=== PATIENT | male | born 1955 | race Caucasian/White ===

== ENCOUNTER 2024-04-19 17:14 | Inpatient (IN) | payer OTHER ==
--- OUTSIDE RECORDS SUMMARY | 2024-04-19 17:16 | XMS REPORT | Continuity of Care Document ---
Author Name Unknown Address [address] [facility] [id number] [id number] [facility] thconnect Address [address] [facility] [address] [phone] Care Team Providers Care Newspaper Delivery Driver Name Role Phone PAM MATHEW Primary Care Physician EVELINE Wells Attending Clinician Unava ilable Payers Payer Name Policy Type Policy Number Effective Date Expirati on Date Source MEDICARE PART A \T\ [id number] 2022 00:00:00 Allergies, Adverse Reactions, Alerts Allergy Name Allergy Type Status Severity Reaction(s) Onset Date Inactive Date Treating Clinician Comments Source NO KNOWN ALLERGIE S Drug Class Active [facility] Encounters Start Date/Time End Date/Time Encounter Type Admission Type Attending Clinicians Care Facility Care Department Encounter ID Source 2022-05-06 10:00:00 2022-05-06 10:00:00 Outpatient EVELINE LAINEZ [facility] [id number] [facility]
--- NOTE | 2024-04-19 18:24 | RAD REPORT ---
Procedure: Chest Single View History: Abdominal pain Comparison: none The lungs appear clear of acute infiltrate. No significant pleural effusion noted. The heart is normal size.. The aorta is tortuous/ectatic IMPRESSION: No acute abnormality is displayed.
[2024-04-19] MEDS ORDERED: METOCLOPRAMIDE 10 MG/2mL INJ ONE (18:32)
[2024-04-19] MEDS ORDERED: MAGNES/ALUMIN/SIMET 30ML UCUP ONE (18:32)
[2024-04-19] MEDS ORDERED: NA CHLORIDE 0.9% 500 ML ONE (18:33)
[2024-04-19] MEDS ORDERED: FENTANYL CITR 100 MCG/2 ML ONE (18:33)
[2024-04-19] MEDS ORDERED: LIDOCAINE VISCOUS 2% 10ML ORAL SOLN ONE (18:33)
[2024-04-19] MEDS ORDERED: FAMOTIDINE 20 MG/2 ML VIAL IV ONE (18:33)
[2024-04-19 18:38] LABS: Absolute Eosinophils 0.1 K/uL (0-0.5); Absolute Lymphocytes (CBC) 1.2 K/uL (0.7-4.9); Absolute Monocytes 0.9 K/uL (0.1-1.3); Absolute Neutrophil 9.3 K/uL (1.8-8.0); Basophils % 0.1 % (0-1.3); Eosinophils % 0.8 % (0-4.4); Hematocrit 42.5 % (39.6-49.0); Hemoglobin 14.5 g/dL (13.6-17.9); Lymphocytes % 10.7 % (15.3-44.8); MCH 31.3 pg (27.0-35.0); MCHC 34.1 g/dL (32.0-36.0); MCV 91.6 fL (80-100); MPV 7.7 fL (7.6-11.3); Monocytes % 7.8 % (3.3-12.3); Neutrophils % 80.6 % (41.7-73.7); Platelets 199 thou/uL (152-406); RBC Red Blood Cell Count 4.64 M/uL (4.33-5.43); Red Cell Distribution Width 13.2 % (12.1-15.2)
[2024-04-19 18:53] LABS: PT Prothrombin Time 12.1 SECONDS (9.4-12.5); Protime INR 1.08
[2024-04-19 19:07] LABS: Albumin 3.6 g/dL (3.4-5.0); Albumin/Globulin Ratio 0.9 (1.1-1.8); Anion Gap 6.7 mEq/L (5.0-15.0); Bilirubin Indirect, Calculated 0.6 mg/dL (0.2-0.8); Bilirubin Total 1.6 mg/dL (0.2-1.0); Globulin 3.8 g/dL (2.3-3.5); Magnesium 2.5 mg/dL (1.6-2.4); Potassium 3.7 mEq/L (3.5-5.1); Protein, Total 7.4 g/dL (6.4-8.2)
--- NOTE | 2024-04-19 20:12 | RAD REPORT ---
EXAMINATION: CT ABDOMEN AND PELVIS WITH CONTRAST CLINICAL INDICATION: Male, 68 years old. ABD PAIN TECHNIQUE: CT abdomen and pelvis was performed, after the administration of 100 cc Isovue-300.. Sagit candace and coronal reconstructions were obtained. One or more of the following dose reduction techniques were used: Automated exposure control, adjustment of the mA and/or kV according to patien t size, and/or iterative reconstruction. Unless otherwise specified, incidental findings do not require dedicated imaging follow-up. [id number].. Oral contrast not given which limits evaluation of pradeep l COMPARISON: 2017 FINDINGS: Tiny hepatic cyst 4 mm calculus at the junction of the gallbladder neck and cystic duct. The spleen, pancreas, adrenals kidney unremarkable. Tiny calculus right kidney. No hydronephrosis No evidence of diverticulitis. : IMPRESSION: 4 mm calculus at the junction of the gallbladder neck and cystic duct.
--- NOTE | 2024-04-19 20:21 | ER ---
Nurse's Notes [facility] Name: Javed Enamorado Age: 68 yrs Sex: Male : 1955 Arrival Date: 04/19/2024 Time: 17:14 Bed 3 Private MD: Diagnosis: Calculus of gallbladder and bile duct without cholecystitis with obstruction;Epigastric abdominal tenderness Presentation: 04/19 17:15 Chief complaint: Patient states: abdominal pain described as pressure that began today aa5 after eating "a big meal". Also reports nausea and 1 vomiting episode. 17:15 Coronavirus screen: nausea, vomiting. Ebola Screen: Patient denies travel to an [facility] Ebola-affected area in the 21 days before illness onset. Initial Sepsis Screen: Does the patient meet any 2 criteria? No. Patient's initial sepsis screen is negative. Does the patient have a suspected source of infection? No. Patient's initial sepsis screen is negative. Risk Assessment: Do you want to hurt yourself or someone else? Patient reports no desire to harm self or others. Onset of symptoms was April 19, 2024. 17:15 Acuity: LILIAN 3 aa5 17:15 Method Of Arrival: Ambulatory aa5 Historical: - Allergies: 17:18 No Known Allergies; aa5 - PMHx: 17:18 Hypertensive disorder; Diabetes mellitus; ulcerative colitis; aa5 - PSHx: 17:18 None; aa5 - Immunization history:: Adult Immunizations unknown. - Infectious Disease History:: Denies. - Social history:: Smoking status: Patient denies any tobacco usage or history of. Screenin:15 [facility] ED Fall Risk Assessment (Adult) History of falling in the last 3 months, aa5 including since admission No falls in past 3 months (0 pts) Confusion or Disorientation No (0 pts) Intoxicated or Sedated No (0 pts) Impaired Gait No (0 pts) Mobility Assist Device Used No (0 pt) Altered Elimination No (0 pt) Score/Fall Risk Level 0 - 2 = Low Risk Oriented to surroundings, Maintained a safe environment, Educated pt \\T\\ family on fall prevention, incl call for assistance when getting out of bed. Abuse screen: Denies threats or abuse. Nutritional screening: No deficits noted. Tuberculosis screening: No symptoms or risk factors identified. Assessment: 17:15 General: Appears comfortable, Behavior is calm, cooperative. Pain: Complains of pain in aa5 right upper quadrant, left upper quadrant, right lower quadrant and left lower quadrant Pain does not radiate. Quality of pain is described as pressure, Pain began 2-3 hours ago Is continuous. Neuro: Level of Consciousness is awake, alert, obeys commands, Oriented to person, place, time, situation. Cardiovascular: Patient's skin is warm and dry. Respiratory: Airway is patent Respiratory effort is even, unlabored, Respiratory pattern is regular, symmetrical. GI: Abdomen is round Bowel sounds present X 4 quads. Abd is soft and non tender X 4 quads. Reports nausea, vomiting. : No signs and/or symptoms were reported regarding the genitourinary system. EENT: No signs and/or symptoms were reported regarding the EENT system. Derm: Skin is pink, warm \\T\\ dry. Musculoskeletal: Range of motion: intact in all extremities. 18:35 Reassessment: Patient is alert, oriented x 3, equal unlabored respirations, skin aa5 warm/dry/pink. 18:49 Reassessment: Patient is alert, oriented x 3, equal unlabored respirations, skin aa5 warm/dry/pink. Patient states feeling better. 20:40 Reassessment: Patient is alert, oriented x 3, equal unlabored respirations, skin jj7 warm/dry/pink. General: Appears in no apparent distress. comfortable, Behavior is calm, cooperative, appropriate for age. Pain: Denies pain. Neuro: No deficits noted. GI: No deficits noted. Patient currently denies. 22:41 Reassessment: PT REFUSED TO PUT ON A GOWN. jj7 Vital Signs: 17:15 BP 154 / 73; Pulse 65; Resp 18 S; Temp 97.5(TE); Pulse Ox 97% on R/A; Weight 95.25 kg aa5 (R); Height 5 ft. 10 in. (R); 20:40 BP 121 / 66; Pulse 92; Resp 59; Pulse Ox 97% ; Pain 0/10; jj7 21:33 BP 133 / 67; Pulse 66; Resp 18; Pulse Ox 98% ; br2 22:39 BP 149 / 87; Pulse 51; Resp 17; Pulse Ox 96% ; Pain 0/10; jj7 23:25 BP 142 / 84; Pulse 69; Resp 18; Temp 98.1; Pulse Ox 98% ; Pain 0/10; jj7 17:15 Body Mass Index 30.13 (95.25 kg, 177.8 cm) aa5 20:40 Pain Scale: Adult jj7 22:39 Pain Scale: Adult jj7 23:25 Pain Scale: Adult jj7 ED Course: 17:15 Patient arrived in ED. aa5 17:15 Arm band placed on. aa5 17:15 Patient has correct armband on for positive identification. Pt sitting on recliner, aa5 internal waiting area. 17:17 Jose F Schwartz MD is Attending Physician. [facility] 17:18 Triage completed. aa5 17:50 US Abdomen Limited In Process Unspecified. EDMS 17:52 XRAY Chest (1 view) In Process Unspecified. EDMS 18:13 Radiology exam delayed due to lab results not completed at this time. (BUN/Creatinine). nj 18:20 EKG done, by ED staff, reviewed by Jose F Schwartz MD. aa5 18:25 Initial lab(s) drawn, by co, sent to lab. Inserted saline lock: 20 gauge in left aa5 antecubital area, using aseptic technique. Blood collected. Flushed with 10 mL NS. 18:41 Letitia West, RN is Primary Nurse. aa5 19:00 Report given to KIRT Garcia. aa5 19:37 CT Abd/Pelvis - IV Contrast Only In Process Unspecified. EDMS 19:37 No provider procedures requiring assistance completed. aa5 20:19 Arnoldo Jon MD is Hospitalizing Provider. [facility] 21:26 Primary Nurse role handed off by Letitia West, RN rv1 23:25 Patient admitted, IV remains in place. jj7 Administered Medications: 18:35 Drug: Famotidine IVP 20 mg IVP once; dilute with 10 mL 0.9% NaCl; give over 2 minutes aa5 Route: IVP; Site: left antecubital; 18:50 Follow up: Response: No adverse reaction aa5 18:35 Drug: metoCLOPramide IVP 10 mg IVP once; over 1 to 2 minutes Route: IVP; Site: left aa5 antecubital; 18:50 Follow up: Response: No adverse reaction aa5 18:35 Drug: GI Cocktail with - (Maalox PO 30 ml, Lidocaine Mucous Membrane 2 % 20 aa5 ml, Phenobarbital-Belladonna PO 10 ml) PO once Route: PO; 18:50 Follow up: Response: No adverse reaction aa5 18:37 Drug: fentaNYL (PF) IVP 25 mcg IVP once Route: IVP; Site: left antecubital; aa5 18:50 Follow up: Response: No adverse reaction aa5 18:37 Drug: fentaNYL (PF) IVP 25 mcg IVP once Route: IVP; Site: left antecubital; aa5 18:50 Follow up: Response: No adverse reaction aa5 18:43 Drug: NS 0.9% IV 500 ml IV at bolus once Route: IV; Rate: bolus; Site: left antecubital;aa5 22:38 Follow up: IV Status: Completed infusion jj7 21:29 Drug: Piperacillin-Tazobactam IVPB 3.375 grams IVPB once over 60 mins; (mix in NS 100 br2 mL) Route: IVPB; Infused Over: 60 mins; Site: left antecubital; 22:00 Follow up: IV Status: Completed infusion br2 22:38 Drug: NS 0.9% IV 1000 ml IV at 125 ml/hr continuous Route: IV; Rate: 125 ml/hr; Site: jj7 left antecubital; 23:33 Follow up: IV Status: Infusion continued upon admission jj7 Medication: 18:50 VIS not applicable for this client. aa5 Outcome: 20:20 Decision to Hospitalize by Provider. beto 23:24 Patient left the ED. iw 23:25 Admitted to Med/surg accompanied by nurse, room 415, Report called to SBAR FAXED jj7 23:25 Condition: improved Signatures: Dispatcher [employer] EDMS Jose F Schwartz MD MD cha Williams, Irene RN Letitia Olivera RN RN aa5 Jake Henderson Juwairiyah RN RN jj7 Lindsay Brandt rv1 Sayra Ro RN RN br2 Corrections: (The following items were deleted from the chart) 17:20 17:15 Chief complaint: Patient states: abdominal pain described as pressure that began aa5 today after eating. Also reports nausea and 1 vomiting episode. aa5 22:40 20:40 BP 121 / ???; Pulse 92bpm; Resp 59bpm; Pulse Ox 97%; Pain 0/10, Adult; jj7 jj7
--- NOTE | 2024-04-19 20:21 | EDPHYS ---
Physician Documentation [facility] Name: Javed Enamorado Age: 68 yrs Sex: Male : 1955 Arrival Date: 04/19/2024 Time: 17:14 Bed 3 Private MD: ED Physician Jose F Schwartz HPI: 04/19 17:33 This 68 yrs old Male presents to ER via Ambulatory with complaints of beto Abdominal Pain. 17:33 The patient presents with abdominal pain abdominal distention in the upper abdomen, in beto the lower abdomen. Onset: The symptoms/episode began/occurred just prior to arrival. The symptoms do not radiate. Historical: - Allergies: 17:18 No Known Allergies; aa5 - PMHx: 17:18 Hypertensive disorder; Diabetes mellitus; ulcerative colitis; aa5 - PSHx: 17:18 None; aa5 - Immunization history:: Adult Immunizations unknown. - Infectious Disease History:: Denies. - Social history:: Smoking status: Patient denies any tobacco usage or history of. ROS: 19:53 Constitutional: Negative for fever, chills, and weight loss, Eyes: Negative for injury, beto pain, redness, and discharge, ENT: Negative for injury, pain, and discharge, Neck: Negative for injury, pain, and swelling, Cardiovascular: Negative for chest pain, palpitations, and edema, Respiratory: Negative for shortness of breath, cough, wheezing, and pleuritic chest pain, Back: Negative for injury and pain, : Negative for injury, bleeding, discharge, and swelling, MS/Extremity: Negative for injury and deformity, Skin: Negative for injury, rash, and discoloration, Neuro: Negative for headache, weakness, numbness, tingling, and seizure, Psych: Negative for depression, anxiety, suicide ideation, homicidal ideation, and hallucinations, Allergy/Immunology: Negative for hives, rash, and allergies, Endocrine: Negative for neck swelling, polydipsia, polyuria, polyphagia, and marked weight changes, Hematologic/Lymphatic: Negative for swollen nodes, abnormal bleeding, and unusual bruising, 19:53 Abdomen/GI: Positive for abdominal pain, nausea, Exam: 19:53 Constitutional: This is a well developed, well nourished patient who is awake, alert, beto and in no acute distress. Head/Face: Normocephalic, atraumatic. Eyes: Pupils equal round and reactive to light, extra-ocular motions intact. Lids and lashes normal. Conjunctiva and sclera are non-icteric and not injected. Cornea within normal limits. Periorbital areas with no swelling, redness, or edema. ENT: Nares patent. No nasal discharge, no septal abnormalities noted. Tympanic membranes are normal and external auditory canals are clear. Oropharynx with no redness, swelling, or masses, exudates, or evidence of obstruction, uvula midline. Mucous membranes moist. Neck: Trachea midline, no thyromegaly or masses palpated, and no cervical lymphadenopathy. Supple, full range of motion without nuchal rigidity, or vertebral point tenderness. No Meningismus. Chest/axilla: Normal chest wall appearance and motion. Nontender with no deformity. No lesions are appreciated. Cardiovascular: Regular rate and rhythm with a normal S1 and S2. No gallops, murmurs, or rubs. Normal PMI, no JVD. No pulse deficits. Respiratory: Lungs have equal breath sounds bilaterally, clear to auscultation and percussion. No rales, rhonchi or wheezes noted. No increased work of breathing, no retractions or nasal flaring. Back: No spinal tenderness. No costovertebral tenderness. Full range of motion. Male : Normal genitalia with no discharge or lesions. Skin: Warm, dry with normal turgor. Normal color with no rashes, no lesions, and no evidence of cellulitis. MS/ Extremity: Pulses equal, no cyanosis. Neurovascular intact. Full, normal range of motion. Neuro: Awake and alert, GCS 15, oriented to person, place, time, and situation. Cranial nerves II-XII grossly intact. Motor strength 5/5 in all extremities. Sensory grossly intact. Cerebellar exam normal. Normal gait. Psych: Awake, alert, with orientation to person, place and time. Behavior, mood, and affect are within normal limits. 19:53 ECG was reviewed by the Attending Physician. 19:53 Abdomen/GI: Inspection: distension, Bowel sounds: active, all quadrants, Palpation: mild abdominal tenderness, moderate abdominal tenderness, in the epigastric area, right upper quadrant and left upper quadrant, Liver: no appreciated palpable abnormalities, Hernia: not appreciated, Vital Signs: 17:15 BP 154 / 73; Pulse 65; Resp 18 S; Temp 97.5(TE); Pulse Ox 97% on R/A; Weight 95.25 kg aa5 (R); Height 5 ft. 10 in. (R); 20:40 BP 121 / 66; Pulse 92; Resp 59; Pulse Ox 97% ; Pain 0/10; jj7 21:33 BP 133 / 67; Pulse 66; Resp 18; Pulse Ox 98% ; br2 22:39 BP 149 / 87; Pulse 51; Resp 17; Pulse Ox 96% ; Pain 0/10; jj7 23:25 BP 142 / 84; Pulse 69; Resp 18; Temp 98.1; Pulse Ox 98% ; Pain 0/10; jj7 17:15 Body Mass Index 30.13 (95.25 kg, 177.8 cm) aa5 20:40 Pain Scale: Adult jj7 22:39 Pain Scale: Adult jj7 23:25 Pain Scale: Adult jj7 MDM: 17:17 Patient medically screened. [facility] 19:55 Differential diagnosis: acute coronary syndrome, cholecystitis, Cholelithiasis, beto gastritis, gastroesophageal reflux disease, Mesenteric ischemia or infarction, non-specific abd pain, pancreatitis, Peptic Ulcer Disease, Ureterolithiasis, urinary tract infection. Data reviewed: vital signs, nurses notes, lab test result(s), EKG, radiologic studies, CT scan, plain films, ultrasound. Consideration of Admission/Observation Escalation of care including admission/observation considered. I considered the following discharge prescriptions or medication management in the emergency department Medications were administered in the Emergency Department. See MAR. Independent interpretation of the following test(s) in the Emergency Department EKG: See my EKG interpretation above. Test considered but Not performed: MRI: no mrcp, no gi . Historians other than the Patient: Spouse/Significant Other: well informed. Care significantly affected by the following chronic conditions: Diabetes, Hypertension, Obesity. 04/19 17:22 Order name: Basic Metabolic Panel; Complete Time: 19:16 [facility] 04/19 17:22 Order name: CBC with Diff; Complete Time: 18:59 [facility] 04/19 17:22 Order name: LFT's; Complete Time: 19:16 [facility] 04/19 17:22 Order name: Magnesium; Complete Time: 19:16 [facility] 04/19 17:22 Order name: NT PRO-BNP; Complete Time: 19:16 [facility] 04/19 17:22 Order name: PT-INR; Complete Time: 18:59 [facility] 04/19 17:22 Order name: Troponin HS; Complete Time: 19:16 [facility] 04/19 17:22 Order name: Lipase; Complete Time: 19:16 [facility] 04/19 21:31 Order name: Urinalysis w/ reflexes [facility] 04/19 21:31 Order name: CBC with Automated Diff [facility] 04/19 21:31 Order name: CBC with Automated Diff [facility] 04/19 21:31 Order name: Comprehensive Metabolic Panel [facility] 04/19 21:31 Order name: Comprehensive Metabolic Panel [facility] 04/19 17:22 Order name: XRAY Chest (1 view); Complete Time: 18:59 [facility] 04/19 17:22 Order name: US Abdomen Limited [facility] 04/19 17:22 Order name: CT Abd/Pelvis - IV Contrast Only; Complete Time: 20:13 [facility] 04/19 21:31 Order name: CONS Physician Consult [facility] 04/19 17:22 Order name: Cardiac monitoring; Complete Time: 22:24 [facility] 04/19 17:22 Order name: EKG - Nurse/Tech; Complete Time: 18:43 [facility] 04/19 17:22 Order name: IV Saline Lock; Complete Time: 18:43 [facility] 04/19 17:22 Order name: Labs collected and sent; Complete Time: 18:43 [facility] 04/19 17:22 Order name: O2 Per Protocol; Complete Time: 18:43 [facility] 04/19 17:22 Order name: O2 Sat Monitoring; Complete Time: 18:43 [facility] 04/19 19:23 Order name: NPO; Complete Time: 20:45 [facility] EC:53 Rate is 66 beats/min. QRS [place] is Normal. IN interval is normal. QRS interval is beto normal. QT interval is normal. No Q waves. T waves are Normal. No ST changes noted. Clinical impression: Normal ECG and No evidence of ischemia. Interpreted by me. Reviewed by me. Administered Medications: 18:35 Drug: Famotidine IVP 20 mg IVP once; dilute with 10 mL 0.9% NaCl; give over 2 minutes aa5 Route: IVP; Site: left antecubital; 18:50 Follow up: Response: No adverse reaction aa5 18:35 Drug: metoCLOPramide IVP 10 mg IVP once; over 1 to 2 minutes Route: IVP; Site: left aa5 antecubital; 18:50 Follow up: Response: No adverse reaction aa5 18:35 Drug: GI Cocktail with - (Maalox PO 30 ml, Lidocaine Mucous Membrane 2 % 20 aa5 ml, Phenobarbital-Belladonna PO 10 ml) PO once Route: PO; 18:50 Follow up: Response: No adverse reaction aa5 18:37 Drug: fentaNYL (PF) IVP 25 mcg IVP once Route: IVP; Site: left antecubital; aa5 18:50 Follow up: Response: No adverse reaction aa5 18:37 Drug: fentaNYL (PF) IVP 25 mcg IVP once Route: IVP; Site: left antecubital; aa5 18:50 Follow up: Response: No adverse reaction aa5 18:43 Drug: NS 0.9% IV 500 ml IV at bolus once Route: IV; Rate: bolus; Site: left antecubital;aa5 22:38 Follow up: IV Status: Completed infusion jj7 21:29 Drug: Piperacillin-Tazobactam IVPB 3.375 grams IVPB once over 60 mins; (mix in NS 100 br2 mL) Route: IVPB; Infused Over: 60 mins; Site: left antecubital; 22:00 Follow up: IV Status: Completed infusion br2 22:38 Drug: NS 0.9% IV 1000 ml IV at 125 ml/hr continuous Route: IV; Rate: 125 ml/hr; Site: [facility] left antecubital; 23:33 Follow up: IV Status: Infusion continued upon admission jj7 Disposition Summary: 04/19/24 20:20 Hospitalization Ordered Notes: Hospitalization Status: Inpatient Admission beto Provider: Arnoldo Jon cha Location: Telemetry/MedSur (Inpatient) beto Condition: Stable beto Problem: new beto Symptoms: have improved beto Bed/Room Type: Standard bteo Room Assignment: 415(04/19/24 22:06) rv1 Diagnosis - Calculus of gallbladder and bile duct without cholecystitis with obstruction beto - Epigastric abdominal tenderness beto Forms: - Medication Reconciliation Form beto - SBAR form beto - Leadership Thank You Letter beto Signatures: Dispatcher [employer] Jose F Schroeder MD MD cha Calderon, Audri RN RN aa5 Caryn Vallecillo RN RN jj7 Lindsay Brandt rv1 Sayra Ro RN RN br2 Corrections: (The following items were deleted from the chart) 17:23 17:23 BASIC METABOLIC PANEL+C.LAB.BRZ ordered. EDMS EDMS 17:23 17:23 CBC+H.LAB.BRZ ordered. EDMS EDMS 17:23 17:23 HEPATIC FUNCTION+C.LAB.BRZ ordered. EDMS EDMS 17: 17:23 MAGNESIUM+C.LAB.BRZ ordered. EDMS EDMS 17:23 17:23 PROBNP+C.LAB.BRZ ordered. EDMS EDMS 17:23 17:23 PROTIME (+INR)+COAG.LAB.BRZ ordered. EDMS EDMS 17: 17:23 Troponin High Sensitivity+C.LAB.BRZ ordered. EDMS EDMS 17:23 17:23 LIPASE+C.LAB.BRZ ordered. EDMS EDMS 17:23 17:23 Chest Single View+RAD.RAD.BRZ ordered. EDMS EDMS 17:23 17:23 Abdomen Limited+US.RAD.BRZ ordered. EDMS EDMS 17:23 17:23 Abdomen Pelvis W Con+CT.RAD.BRZ ordered. EDMS EDMS 22:06 20:20 beto rv1
--- NOTE | 2024-04-19 20:31 | RAD REPORT ---
Abdomen Exam Limited History: Abdominal pain Comparison: April 19, 2024 CT Technique: Sonographic evaluation right upper quadrant Findings: The patient's known 4 mm calculus seen on CT same date is not seen on this exam. Also not visualized. Gallbladder wall not thickened. Common bile duct 5 mm Impression: The patient's known 4 mm calculus at the junction of the gallbladder neck and cystic duct not seen on this exam No evidence of cholecystitis
[2024-04-19] MEDS ORDERED: ONDANSETRON 4 MG/2 ML VIAL IV PRN (21:18)
--- NOTE | 2024-04-19 21:18 | P.HP ---
Certification for Inpatient Patient admitted to: Inpatient With expected LOS: >2 Midnights Practitioner: I am a practitioner with admitting privileges, knowledge of patient current condition, hospital course, and medical plan of care. Services: Services provided to patient in accordance with Admission requirements found in Title 42 Section 412.3 of the Code of Federal Regulations Patient History Date of Service: 04/19/24 Reason for admission: Abdominal Pain History of Present Illness: 68 yrs old Male with past medical history of diabetes, hypertension, ulcerative colitis, brought to ER with abdominal pain. Started few days ago has been progressively getting worse. Pain is located in the right upper quadrant associated with some abdominal distention. No fever or chills. No nausea vomiting or diarrhea. Pain get worse after eating food. Denies any nausea vomiting or diarrhea. No chest pain or shortness of breath. Patient was assessed in the ER Patient had a CT and ultrasound which was consistent with gallstones with associated gallbladder wall thickness Allergies No Known Allergies Allergy (Unverified 04/19/24 21:58) Home medications list reviewed: Yes - Past Medical/Surgical History Past Medical History: Reviewed- Non-Contributory Past Surgical History: Reviewed- Non-Contributory - Family History Family History: Reviewed- Non-Contributory - Social History Smoking Status: Never smoker Review of Systems 10-point ROS is otherwise unremarkable Physical Examination - Vital Signs Temperature: 98.2 F Blood Pressure: 146/82 Pulse: 76 Respirations: 18 Pulse Ox (%): 94 - Physical Exam General: Alert, In no apparent distress, Oriented x3, Obese HEENT: Atraumatic, Normocephalic Neck: Supple Respiratory: Clear to auscultation bilaterally, Normal air movement Cardiovascular: Normal pulses, Regular rate/rhythm, Normal S1 S2 Capillary refill: <2 Seconds Gastrointestinal: Soft and benign, W/out hepatosplenomegaly, Tenderness Musculoskeletal: No clubbing, No swelling Integumentary: No rashes, No breakdown Neurological: Normal speech, Normal strength at 5/5 x4 extr, Cranial nerves 3-12 intact, Normal reflexes 2+ Lymphatics: No axilla or inguinal lymphadenopathy - Studies Laboratory Data (last 24 hrs) 04/19/24 04/19/24 04/19/24 18:25 18:25 18:25 WBC 11.50 H Hgb 14.5 Hct 42.5 Plt Count 199 PT 12.1 INR 1.08 Sodium 139 Potassium 3.7 BUN 21 H Creatinine 1.10 Glucose 119 H Magnesium 2.5 H Total Bilirubin 1.6 H AST 367 H ALT 284 H Alkaline Phosphatase 131 H Lipase 38 Assessment and Plan - Plan Acute cholecystitis Gallstones Elevated LFTs N.p.o. postmidnight IV fluids Pain control. Started on IV antibiotic We will get an MRCP Surgery consult Possible lap huang if MRCP is negative Hypertension Antihypertensives titrated Continue home medications and titrate as needed Hyperlipidemia Continue statin Diabetes Insulin sliding scale Accu-Chek before every meal and at bedtime History of ulcerative colitis Supportive management for now GI/DVT prophylaxis Advanced directive full code . Discharge Plan: Home Plan to discharge in: 48 Hours - Advance Directives Does patient have a Living Will: No Does patient have a Durable POA for Healthcare: No - Code Status/Comfort Care Code Status: Full Code Time Spent Managing Pts Care (In Minutes): 48
[2024-04-19] MEDS ORDERED: PIPERACIL/TAZO 3.375 GM VIAL IV ONE (21:23)
[2024-04-19] MEDS ORDERED: NA CHLORIDE 0.9% 100 ML ONE (21:23)
[2024-04-19] MEDS: NA CHLORIDE 0.9% 1,000 ML IV SCH (22:00)
[2024-04-19] MEDS ORDERED: NA CHLORIDE 0.9% 1,000 ML ONE (22:25)
[2024-04-20 01:17] LABS: Specific Gravity > 1.030 (1.005-1.030); Urine Bilirubin NEGATIVE (Negative); Urine Blood Negative (Negative); Urine Clarity Clear (Clear); Urine Color Yellow (Yellow); Urine Glucose NEGATIVE (Negative); Urine Ketones NEGATIVE (Negative); Urine Microscopic Reflex YN NO UMIC; Urine Nitrite NEGATIVE (Negative); Urine Protein NEGATIVE (Negative); Urine Urobilinogen Normal (Normal)
[2024-04-20 01:40] VITALS: BMI 30.1
[2024-04-20] MEDS: PIPER TAZO 3.375 GM in NA CHLORIDE 0.9% 100 ML IV SCH (02:00)
[2024-04-20 06:26] LABS: Absolute Eosinophils 0.3 K/uL (0-0.5); Absolute Lymphocytes (CBC) 1.5 K/uL (0.7-4.9); Absolute Monocytes 0.8 K/uL (0.1-1.3); Absolute Neutrophil 3.6 K/uL (1.8-8.0); Basophils % 0.5 % (0-1.3); Eosinophils % 5.3 % (0-4.4); Hematocrit 40.8 % (39.6-49.0); Hemoglobin 13.8 g/dL (13.6-17.9); Lymphocytes % 24.7 % (15.3-44.8); MCH 31.4 pg (27.0-35.0); MCHC 33.9 g/dL (32.0-36.0); MCV 92.8 fL (80-100); MPV 8.2 fL (7.6-11.3); Monocytes % 12.9 % (3.3-12.3); Neutrophils % 56.6 % (41.7-73.7); Platelets 182 thou/uL (152-406); RBC Red Blood Cell Count 4.39 M/uL (4.33-5.43)
[2024-04-20 06:39] LABS: Albumin 3.2 g/dL (3.4-5.0); Anion Gap 4.3 mEq/L (5.0-15.0); Bilirubin Total 2.1 mg/dL (0.2-1.0); Globulin 3.1 g/dL (2.3-3.5); Potassium 3.3 mEq/L (3.5-5.1); Protein, Total 6.3 g/dL (6.4-8.2)
[2024-04-20] MEDS: ENOXAPARIN 40 MG/0.4 ML SQ SCH (09:00)
--- NOTE | 2024-04-20 09:22 | RAD REPORT ---
EXAMINATION: MR CHOLANGIOGRAM CLINICAL INDICATION: Male, 69 years old. [facility] N Cholelithiasis TECHNIQUE: Multiplanar, multisequence MR imaging of the abdomen without intravenous contrast, and wit h specific attention to the biliary system. Unless otherwise specified, incidental findings do not require dedicated imaging follow-up. 3D MIP reconstruction performed. COMPARISON: CT 04/19/2024, ultrasound 04/19/2024 FINDINGS: GALLBLADDER: Mild gallbladder wall thickening along the margin with the liver. This is nonspecific. N o gallstones identified. BILE DUCTS: No intra or extra hepatic biliary duct dilatation. The suspected stone at the cystic duct is difficult to optimally visualize. It may be seen on image 18, series 3. No stone identified in the common bile duct. LIVER: Subcentimeter T2 hyperintense lesion left hepatic lobe is likely a benign cyst or hemangioma. No suspicious liver lesions. No intrahepatic biliary duct dilatation. PANCREAS: Normal signal. No mass, ductal dilation, or tiesha-pancreatic fluid. LYMPH NODES: No lymphadenopathy. ADDITIONAL FINDINGS: None. IMPRESSION: Stone near the cystic duct is difficult to confidently visualize. No common bile duct stone identifie d. The wall of the gallbladder is mildly thickened along the liver which can be seen with both cholecystitis and/or reactive from underlying liver disease. No biliary ductal dilatation. HIDA coul d confirm cystic duct patency if necessary.
[2024-04-20 09:30] LABS: Albumin 3.5 g/dL (3.4-5.0); Bilirubin Total 2.2 mg/dL (0.2-1.0); Globulin 3.5 g/dL (2.3-3.5)
[2024-04-20] MEDS: KCL 20 MEQ/100 mL IVPB 20 MEQ/100 ML BAG IV SCH (09:48)
[2024-04-20] MEDS: LIDOCAINE HCL/EPINEPHRINE 20 ML MDV ONE (14:09)
[2024-04-20] MEDS ORDERED: ROCURONIUM 50 MG/5 ML VIAL IV ONE (14:28)
[2024-04-20] MEDS ORDERED: LIDOCAINE 1% MPF 5 ML VIAL ONE (14:28)
[2024-04-20] MEDS ORDERED: ONDANSETRON 4 MG/2 ML VIAL ONE (14:28)
[2024-04-20] MEDS ORDERED: propofoL 200 MG/20 ML VIAL IV ONE (14:28)
[2024-04-20] MEDS ORDERED: FENTANYL CITR 100 MCG/2 ML ONE ×2 (14:28→15:56)
[2024-04-20] MEDS ORDERED: MIDAZOLAM HCL 2 MG/2 ML INJ ONE (14:28)
[2024-04-20] MEDS ORDERED: dexAMETHasone 4 MG/ML VIAL ONE (15:12)
[2024-04-20] MEDS ORDERED: GLYCOPYRROLATE 0.2 MG/ML SYR ONE ×5 (15:13→15:14)
[2024-04-20] MEDS ORDERED: NEOSTIGMINE 1 MG/ML -10 ML VIAL ONE (15:14)
--- NOTE | 2024-04-20 15:40 | EKG ---
Test Date: 2024-04-19 Test Time: 18:22:25 Nitroglycerin Separator Operator: ÁNGEL MEASUREMENT RESULTS: Intervals: Rate: 66 NV: 154 QRSD: 80 QT: 440 QTc: 461 [place]: P: 34 NV: 154 QRS: 18 T: 24 INTERPRETIVE STATEMENTS: Normal sinus rhythm Normal ECG No previous ECG available for comparison Electronically Signed On 04-20-24 15:38:22 CDT by Jose G Ulloa
[2024-04-20] MEDS: NA CHLORIDE 0.9% 1,000 ML ONE ×2 (15:46→18:11)
[2024-04-20] MEDS ORDERED: KETOROLAC 30 MG/ML INJ ONE (16:57)
--- NOTE | 2024-04-20 17:20 | P.OP ---
Preoperative diagnosis: Cholecystitis with Choledocholithiasis Postoperative diagnosis: Cholecystitis with Choledocholithiasis Primary procedure: Laparoscopic Cholecystectomy with ICG Secondary procedure: Intraoperative Contrast Cholangiography Other procedure(s): Attempted Laparoscopic Common Bile Duct Exploration with choledochoscopy Anesthesia: GETA + Local Estimated blood loss: <5cc Specimen: Gallbladder Findings: Stone @ Distal Common Bile Duct Complications: None Drain(s): JORDON drain (10mm Flat) Implants: Lucio Hemostatic Powder Transferred to: Recovery Room Condition: Good
--- NOTE | 2024-04-20 17:20 | RAD REPORT ---
EXAM: Cholangiogram in surgery HISTORY: Cholelithiasis FINDINGS: Limited intraoperative fluoroscopic views were taken during a cholangiogram in surgery. Cystic duct injection performed by operating surgeon. The common bile duct is normal in caliber without filling defect. Contrast passes into the duodenum. Fluoroscopic time: 0.1 minutes. IMPRESSION: Unremarkable cholangiogram
[2024-04-20] MEDS: MEPERIDINE HCL 25 MG/ML SYR ONE (17:35)
[2024-04-20] MEDS: HYDROMORPHONE HCL 1 MG/ML INJ ONE (17:50)
[2024-04-20] MEDS: FENTANYL CITR 100 MCG/2 ML ONE (18:05)
[2024-04-20] MEDS: HYDROCODONE/APAP 5/325 MG TAB PO PRN (20:50)
--- NOTE | 2024-04-21 04:06 | OP ---
Date of Procedure: 04/20/2024 Surgeon: Amado Martinez MD, Preoperative Diagnosis: Cholecystitis with choledocholithiasis. Postoperative Diagnosis: Cholecystitis with choledocholithiasis. Procedures Performed: 1.Laparoscopic cholecystectomy with indocyanine green cholangiography. 2.Intraoperative contrast cholangiography with interpretation. 3.Attempted laparoscopic common bile duct exploration with choledochoscopy. Anesthesia: General endotracheal plus local. Estimated Blood Loss: Less than 5 cc. Specimen: Gallbladder. Findings: Stone in the distal common bile duct. Complications: None. Drains: 10 mm flat JORDON drain. Implants: Lucio hemostatic powder. Disposition: The patient was transferred to recovery room in good condition. Procedure In Detail: After informed consent was obtained, the patient was brought to the operating r oom, prepped and draped in the usual sterile fashion, after adequate anesthesia was achieved. I anes thetized an area in the supraumbilical position down to subcutaneous tissues. There was an umbilical hernia in the inferior position and therefore I placed a supraumbilical trocar. At this point, 5-mm 0-degree optical trocar was then introduced in the abdomen without incident or complication. Insuff lation was obtained to 15 mmHg at this time. There was no injury to vital structures upon entry into the abdomen. Three additional trocars were placed, all 5 mm trocars placed; 1 in the epigastrium, 1 in the right upper quadrant, 1 in the right mid abdomen. All these were similarly anesthetized, sha rply incised. A 5 mm trocar was placed under direct visualization without incident or complication. The umbilical trocar was then upsized to a 12 mm under direct visualization. The patient was positi oned head up right-side up position. Ratcheted graspers were used to grasp the patient's gallbladder , placed towards the patient's right shoulder. Dissection continued down the Conner pouch of the g allbladder, dissecting out 2 structures, identified as both cystic duct and cystic artery structure. A critical view of safety was obtained at this point. I, at this time, after skeletonizing the stru ctures, performed an intraoperative cholangiogram as well as indocyanine green cholangiography confir med the cystic and common duct confluence with the indocyanine green cholangiography, then followed b y an intraoperative cholangiogram using a Jon clamp at the Conner pouch of the gallbladder. An i njection was made and flushed quite easily, and I performed an intraoperative cholangiogram showing a filling defect down near the distal common bile duct consistent with residual material, likely a sto ne or obstructive tissue. Some contrast was getting into the duodenum. However, there appeared to b e a filling defect at this aspect. No additional filling defects were appreciated at this point. At this point, I removed the Jon cholangiogram catheter and proceeded to make a small diamond incision o verlying the insertion site and placed introducer sheath into the cystic duct. At this point, raymond ed a wire into the duodenum. Fluoroscopic guidance then confirmed the position of the wire in the du odenum, coiling easily in the duodenum without issue or resistance. At this point, attempts were mad e to pass the choledochoscope, but it could not be passed beyond the entrance and the enterotomy of t he cystic duct. Balloon dilation was performed at this point up to 6 mm with the intraoperative ball oon at the cystic duct without significant issue. At this point, attempts were made to place introdu cer sheath and multiple attempts to repositioning were unable to get the choledochoscope to advance t o the appropriate position. Therefore, at this point, I opted to abandon the procedure and the wire and camera were removed at this point. I then proceeded to place a clip over the cystic duct at this point on the proximal aspect and singly on the distal aspect and this was ligated between Jessika. C ystic artery was ligated also between double titanium clips on the proximal side and singly on the di stal side with the LigaSure device. I then proceeded to remove the gallbladder off the hepatic fossa without incident or complication, placed in EndoCatch bag, removed through the umbilical trocar, and sent off for pathologic examination. The liver bed required minimal fulguration at this point. I t sanchez grasped the cystic duct stump and placed in Vicryl Endoloop proximal to this without incident or complication with good approximation. There was no leakage about the end of the procedure and indocy anine green cholangiography reconfirmed this. Remaining effluent was suctioned out. At this point, I then placed Lucio hemostatic powder into the subhepatic space in this area. In addition, at this point, I brought in a 10 mm flat JORDON drain, placed in the subhepatic space adjacent to the cystic duct stump and brought it out through the lateral inferior-most trocar. I then positioned the patient ba in neutral position and sucked up remaining effluent using the suction device, and I closed the 12 mm trocar site using a Pedro-Bryan suture passer with 0 Vicryl in interrupted fashion with good approximation of tissues. At this point, the abdomen was desufflated under direct visualization with out incident or complication. The remaining trocars were removed. All skin was then copiously irrig ated and closed with a 4-0 Monocryl in a running fashion. Dermabond was placed over top. I then isabella beronica a suture over the drain stitch, which is a 3-0 nylon suture and a sterile dressing placed over to p. The patient tolerated the procedure well without incident or complication, transferred to PACU in good condition. All counts were correct at the end of the case. RAFAEL/CRISTIAN Voice ID: [id number] Report ID: [id number]
[2024-04-21 09:22] LABS: Absolute Eosinophils 0.1 K/uL (0-0.5); Absolute Lymphocytes (CBC) 1.7 K/uL (0.7-4.9); Absolute Monocytes 0.7 K/uL (0.1-1.3); Absolute Neutrophil 5.2 K/uL (1.8-8.0); Basophils % 0.5 % (0-1.3); Hematocrit 37.8 % (39.6-49.0); Hemoglobin 12.7 g/dL (13.6-17.9); Lymphocytes % 22.2 % (15.3-44.8); MCH 31.6 pg (27.0-35.0); MCHC 33.7 g/dL (32.0-36.0); MCV 93.7 fL (80-100); MPV 9.9 fL (7.6-11.3); Monocytes % 9.2 % (3.3-12.3); Neutrophils % 67.1 % (41.7-73.7); Platelets 195 thou/uL (152-406); RBC Red Blood Cell Count 4.03 M/uL (4.33-5.43); Red Cell Distribution Width 13.3 % (12.1-15.2)
[2024-04-21 09:34] LABS: Anion Gap 9.5 mEq/L (5.0-15.0); Bilirubin Total 0.8 mg/dL (0.2-1.0); Magnesium 2.4 mg/dL (1.6-2.4); Phosphorus 2.6 mg/dL (2.5-4.9); Potassium 4.5 mEq/L (3.5-5.1)
[2024-04-21] MEDS ORDERED: NA CHLORIDE 0.9% 1,000 ML IV SCH (13:47)
[2024-04-21] MEDS: NA CHLORIDE 0.9% 1,000 ML IV SCH (14:00)
[2024-04-21 21:23] VITALS: O2SAT 92
[2024-04-22] MEDS: ACETAMINOPHEN 325 MG TABLET PO PRN (02:55)
[2024-04-22 06:22] LABS: Absolute Eosinophils 0.5 K/uL (0-0.5); Absolute Lymphocytes (CBC) 2.5 K/uL (0.7-4.9); Absolute Monocytes 0.7 K/uL (0.1-1.3); Absolute Neutrophil 4.5 K/uL (1.8-8.0); Basophils % 0.4 % (0-1.3); Eosinophils % 5.6 % (0-4.4); Hematocrit 39.3 % (39.6-49.0); Hemoglobin 13.3 g/dL (13.6-17.9); Lymphocytes % 30.6 % (15.3-44.8); MCH 31.7 pg (27.0-35.0); MCHC 33.8 g/dL (32.0-36.0); MCV 93.8 fL (80-100); MPV 8.3 fL (7.6-11.3); Monocytes % 8.4 % (3.3-12.3); Platelets 190 thou/uL (152-406); RBC Red Blood Cell Count 4.19 M/uL (4.33-5.43); Red Cell Distribution Width 13.3 % (12.1-15.2)
[2024-04-22 07:03] LABS: Anion Gap 5.7 mEq/L (5.0-15.0); Bilirubin Total 0.6 mg/dL (0.2-1.0); Globulin 3.1 g/dL (2.3-3.5); Potassium 4.7 mEq/L (3.5-5.1); Protein, Total 6.1 g/dL (6.4-8.2)
[2024-04-22 12:25] VITALS: BP 147/89; TEMP 98.1
== END 2024-04-22 15:34 | disposition home or self-care (01) | DRG 419 ==
LOC: ER 17:14 → ERHOLD 21:18 → 4TH 22:30
PROVIDERS: ADMIT Family Medicine; ATTEND Hospitalist
PROC: BF52200 Other Imaging of Gallbladder using Fluorescing Agent, Indocyanine Green Dye, Intraoperative (ICD-10-PCS; 2024-04-20)
PROC: 0FT44ZZ Resection of Gallbladder, Percutaneous Endoscopic Approach (ICD-10-PCS; principal; 2024-04-20 18:15)
DX: K80.40 Calculus of bile duct with cholecystitis, unspecified, without obstruction (principal); I10 Essential (primary) hypertension; E78.5 Hyperlipidemia, unspecified; E11.9 Type 2 diabetes mellitus without complications; E66.9 Obesity, unspecified; R79.89 Other specified abnormal findings of blood chemistry; Z68.30 Body mass index [BMI] 30.0-30.9, adult
CPT/HCPCS: 36415; 71045; 74177; 74181; 74300; 76705; 80048; 80053; 80076; 81003; 83690; 83735; 83880; 84100; 84484; 85025; 85610; 88304; 93005; 96361; 96365; 96375; 99285; J1100; J1170; J1650; J2001; J2175; J2250; J2405; J2543; J2704; J2710; J2765; J3010; J3480; J7030; J7040; Q9967